=== PATIENT | female | born 1985 | race Two or more races ===

== ENCOUNTER 2018-02-17 22:17 | Observation (INO) | payer OTHER ==
[~2018-02-17] VITALS: Ht 157.5 cm; Wt 95.5 kg
[~2018-02-17 22:17] MED LIST: DOCU240C31 PO; IBUP-1222 PO; OXYC-302 PO
[2018-02-17 22:20] VITALS: BP 153/83
[2018-02-17 22:45] LABS: MICROSCOPIC INDICATED
[2018-02-17 23:18] LABS: BASOPHILS # (AUTO) 0.02 x10^3/uL (0-0.1); BASOPHILS % (AUTO) 0 % (0-1); EOSINOPHILS # (AUTO) 0.08 x10^3/uL (0-0.4); EOSINOPHILS % (AUTO) 1 % (1-7); LYMPHOCYTES # (AUTO) 1.81 x10^3/uL (1-3.4); LYMPHOCYTES % (AUTO) 26 % (22-44); MD NO; MEAN CORPUSCULAR HEMOGLOBIN 27.1 pg (27.0-34.8); MEAN CORPUSCULAR HGB CONC 33.2 g/dL (32.4-35.8); MEAN CORPUSCULAR VOLUME 81.7 fL (80-100); MEAN PLATELET VOLUME 10.1 fL (7.4-10.4); MONOCYTES % (AUTO) 10 % (2-9); NEUTROPHILS # (AUTO) 4.49 x10^3/uL (1.8-6.8); NEUTROPHILS % (AUTO) 63 % (42-75); PLATELET COUNT 172 x10^3/uL (130-400); RED BLOOD COUNT 4.13 x10^6/uL (3.82-5.3); RED CELL DISTRIBUTION WIDTH 14.4 % (9.6-15.2)
[2018-02-17 23:30] LABS: ALANINE AMINOTRANSFERASE 13 U/L (12-78); ALBUMIN 2.2 g/dL (3.4-5.0); ANION GAP 10 mmol/L (5-15); CALCIUM 8.4 mg/dL (8.5-10.1); CHLORIDE 110 mmol/L (98-107); CREATININE 0.52 mg/dL (0.55-1.02)
[2018-02-17 23:31] LABS: BILIRUBIN, DIRECT < 0.1 mg/dL (0.1-0.2)
[2018-02-17 23:33] LABS: ALKALINE PHOSPHATASE 139 U/L (45-117); BILIRUBIN,TOTAL 0.3 mg/dL (0.2-1.0)
== END 2018-02-18 00:55 | disposition home or self-care (01) ==
LOC: LDOP 22:17 → LDIP 02-18 00:15
PROVIDERS: ADMIT Student in an Organized Health Care Education/Training Program; ATTEND Student in an Organized Health Care Education/Training Program
DX: Z34.93 Encounter for supervision of normal pregnancy, unspecified, third trimester (principal); Z3A.37 37 weeks gestation of pregnancy
CPT/HCPCS: 36415; 59025; 80053; 81001; 82248; 82570; 84156; 84550; 85025; 87086; G0378

== ENCOUNTER 2018-02-18 19:04 | Outpatient (CLI) | payer OTHER ==
[~2018-02-18] VITALS: Ht 157.5 cm; Wt 96.5 kg
[2018-02-18 19:37] LABS: MICROSCOPIC INDICATED
[2018-02-18 19:48] LABS: BASOPHILS # (AUTO) 0.02 x10^3/uL (0-0.1); BASOPHILS % (AUTO) 0 % (0-1); EOSINOPHILS # (AUTO) 0.05 x10^3/uL (0-0.4); EOSINOPHILS % (AUTO) 1 % (1-7); LYMPHOCYTES % (AUTO) 27 % (22-44); MD NO; MEAN CORPUSCULAR HEMOGLOBIN 27.4 pg (27.0-34.8); MEAN CORPUSCULAR HGB CONC 33.8 g/dL (32.4-35.8); MEAN PLATELET VOLUME 10.4 fL (7.4-10.4); MONOCYTES # (AUTO) 0.59 x10^3/uL (0.2-0.8); MONOCYTES % (AUTO) 10 % (2-9); NEUTROPHILS # (AUTO) 3.67 x10^3/uL (1.8-6.8); NEUTROPHILS % (AUTO) 62 % (42-75); PLATELET COUNT 171 x10^3/uL (130-400); RED BLOOD COUNT 4.09 x10^6/uL (3.82-5.3); RED CELL DISTRIBUTION WIDTH 14.6 % (9.6-15.2)
[2018-02-18 20:00] LABS: ALANINE AMINOTRANSFERASE 13 U/L (12-78); ALBUMIN 2.1 g/dL (3.4-5.0); ANION GAP 8 mmol/L (5-15); BILIRUBIN, DIRECT < 0.1 mg/dL (0.1-0.2); CALCIUM 8.4 mg/dL (8.5-10.1); CHLORIDE 109 mmol/L (98-107); CREATININE 0.51 mg/dL (0.55-1.02)
[2018-02-18 20:02] LABS: ALKALINE PHOSPHATASE 141 U/L (45-117); BILIRUBIN,TOTAL 0.3 mg/dL (0.2-1.0); TOTAL PROTEIN 5.9 g/dL (6.4-8.2)
== END 2018-02-18 20:19 | disposition home or self-care (01) ==
LOC: LDOP 19:04
PROVIDERS: ATTEND Student in an Organized Health Care Education/Training Program
DX: O26.893 Other specified pregnancy related conditions, third trimester (principal); R51 Headache; H53.8 Other visual disturbances; R10.11 Right upper quadrant pain; Z3A.35 35 weeks gestation of pregnancy
CPT/HCPCS: 36415; 59025; 80053; 81001; 82248; 82570; 84156; 84550; 85025; 87086; 99211; G0463

== ENCOUNTER 2018-02-21 09:04 | Observation (INO) | payer OTHER ==
[~2018-02-21] VITALS: Ht 157.5 cm; Wt 97.7 kg
[2018-02-21 09:16] VITALS: BP 127/92
[2018-02-21 09:43] LABS: MICROSCOPIC INDICATED
[2018-02-21] MEDS ORDERED: DIPHENHYDRAMINE 50 MG/ML, 1ML ONE (09:51)
[2018-02-21] MEDS ORDERED: METOCLOPRAMIDE 5 MG/ML, 2ML ONE (09:51)
[2018-02-21] MEDS ORDERED: LACTATED RINGERS 1,000 ML IV SCH ×2 (10:00→10:05)
[2018-02-21] MEDS ORDERED: METOCLOPRAMIDE 5 MG/ML, 2ML IVPush ONE (10:00)
[2018-02-21] MEDS ORDERED: DIPHENHYDRAMINE 50 MG/ML, 1ML IVPush ONE (10:00)
[2018-02-21 10:21] LABS: BASOPHILS # (AUTO) 0.02 x10^3/uL (0-0.1); BASOPHILS % (AUTO) 0 % (0-1); EOSINOPHILS # (AUTO) 0.07 x10^3/uL (0-0.4); EOSINOPHILS % (AUTO) 1 % (1-7); LYMPHOCYTES # (AUTO) 1.45 x10^3/uL (1-3.4); LYMPHOCYTES % (AUTO) 24 % (22-44); MD NO; MEAN CORPUSCULAR HEMOGLOBIN 27.3 pg (27.0-34.8); MEAN CORPUSCULAR HGB CONC 33.4 g/dL (32.4-35.8); MEAN CORPUSCULAR VOLUME 81.5 fL (80-100); MEAN PLATELET VOLUME 10.2 fL (7.4-10.4); MONOCYTES # (AUTO) 0.51 x10^3/uL (0.2-0.8); MONOCYTES % (AUTO) 9 % (2-9); NEUTROPHILS # (AUTO) 3.97 x10^3/uL (1.8-6.8); NEUTROPHILS % (AUTO) 66 % (42-75); PLATELET COUNT 168 x10^3/uL (130-400); RED BLOOD COUNT 4.47 x10^6/uL (3.82-5.3); RED CELL DISTRIBUTION WIDTH 14.5 % (9.6-15.2)
[2018-02-21 10:33] LABS: ALBUMIN 2.3 g/dL (3.4-5.0); ANION GAP 8 mmol/L (5-15); BILIRUBIN, DIRECT 0.1 mg/dL (0.1-0.2); CALCIUM 7.6 mg/dL (8.5-10.1); CHLORIDE 108 mmol/L (98-107)
[2018-02-21 10:36] LABS: ALANINE AMINOTRANSFERASE 14 U/L (12-78); ALKALINE PHOSPHATASE 156 U/L (45-117); BILIRUBIN,TOTAL 0.7 mg/dL (0.2-1.0); CREATININE 0.57 mg/dL (0.55-1.02); TOTAL PROTEIN 6.2 g/dL (6.4-8.2)
[2018-02-21] MEDS ORDERED: FENTANYL PF 100 MCG/2ML ONE (10:53)
[2018-02-21] MEDS ORDERED: FENTANYL PF 100 MCG/2ML IVPush PRN (11:00)
[2018-02-21] MEDS ORDERED: FENTANYL PF 100 MCG/2ML IVPush ONE (11:30)
[2018-02-21] MEDS ORDERED: PREN1TAB69 PO (14:35)
== END 2018-02-21 14:41 | disposition home or self-care (01) ==
LOC: LDOP 09:04 → LDIP 10:54
PROVIDERS: ADMIT Student in an Organized Health Care Education/Training Program; ATTEND Student in an Organized Health Care Education/Training Program
DX: O26.893 Other specified pregnancy related conditions, third trimester (principal); R51 Headache; Z3A.35 35 weeks gestation of pregnancy
CPT/HCPCS: 36415; 59025; 80053; 81001; 82248; 82570; 84156; 84550; 85025; 87086; 96361; 96374; 96375; G0378; J1200; J2765; J3010; J7120; 96360

== ENCOUNTER 2018-02-25 11:12 | Inpatient (IN) | payer OTHER ==
[~2018-02-25] VITALS: Ht 157.5 cm; Wt 97.5 kg
[~2018-02-25 11:12] MED LIST changes: +PREN1TAB69 PO
[2018-02-25] MEDS ORDERED: OXYTOCIN 30U/ 0.9% NaCL 500ML 500 ML IV ONE (11:17)
[2018-02-25] MEDS ORDERED: MAGNESIUM SULF. PMX 20GM/500ML 500 ML IV ONE ×2 (11:26→21:56)
[2018-02-25] MEDS ORDERED: MAGNESIUM SULFATE PMX 4GM/100M 100 ML ONE (11:26)
[2018-02-25] MEDS ORDERED: MAGNESIUM SULFATE PMX 4GM/100M 100 ML IVPB ONE (11:30)
[2018-02-25] MEDS ORDERED: FENTANYL PF 100 MCG/2ML IVPush PRN (11:30)
[2018-02-25] MEDS ORDERED: FENTANYL PF 100 MCG/2ML IV PRN (11:30)
[2018-02-25] MEDS ORDERED: PLEASE ENTER HEIGHT AND WEIGHT MC SCH (11:30)
[2018-02-25] MEDS ORDERED: ONDANSETRON 2MG/ML, 2ML IVPush PRN (11:30)
[2018-02-25] MEDS ORDERED: LABETALOL 5MG/ML, 20ML ONE (11:37)
[2018-02-25] MEDS ORDERED: LABETALOL 5MG/ML, 20ML IVPush ONE (12:00)
[2018-02-25 12:12] LABS: MEAN CORPUSCULAR HGB CONC 33.5 g/dL (32.4-35.8); MEAN CORPUSCULAR VOLUME 80.7 fL (80-100); MEAN PLATELET VOLUME 11.1 fL (7.4-10.4); PLATELET COUNT 177 x10^3/uL (130-400); RED BLOOD COUNT 4.63 x10^6/uL (3.82-5.3); RED CELL DISTRIBUTION WIDTH 14.9 % (9.6-15.2)
[2018-02-25] MEDS: MAGNESIUM SULF. PMX 20GM/500ML 500 ML IV PRN ×2 (12:16→22:00)
[2018-02-25] MEDS: LACTATED RINGERS 1,000 ML IV PRN ×2 (12:20→21:54)
[2018-02-25 12:23] LABS: CHLORIDE 108 mmol/L (98-107)
[2018-02-25 12:29] LABS: ALANINE AMINOTRANSFERASE 15 U/L (12-78); ALBUMIN 2.3 g/dL (3.4-5.0); ALKALINE PHOSPHATASE 175 U/L (45-117); ANION GAP 11 mmol/L (5-15); BILIRUBIN,TOTAL 0.5 mg/dL (0.2-1.0); CALCIUM 8.7 mg/dL (8.5-10.1); TOTAL PROTEIN 6.3 g/dL (6.4-8.2)
[2018-02-25 12:31] LABS: BILIRUBIN, DIRECT < 0.1 mg/dL (0.1-0.2)
[2018-02-25 12:54] LABS: BASOPHILS # (AUTO) 0.01 x10^3/uL (0-0.1); BASOPHILS % (AUTO) 0 % (0-1); EOSINOPHILS # (AUTO) 0.04 x10^3/uL (0-0.4); EOSINOPHILS % (AUTO) 1 % (1-7); LYMPHOCYTES # (AUTO) 1.56 x10^3/uL (1-3.4); LYMPHOCYTES % (AUTO) 25 % (22-44); MD SCAN; MONOCYTES # (AUTO) 0.56 x10^3/uL (0.2-0.8); MONOCYTES % (AUTO) 9 % (2-9); NEUTROPHILS % (AUTO) 66 % (42-75)
[2018-02-25 13:05] VITALS: BP 147/97
[2018-02-25] MEDS ORDERED: NEWBORN KIT ONE (13:17)
[2018-02-25] MEDS ORDERED: OXYTOCIN 30U/ 0.9% NaCL 500ML 500 ML IV PRN (13:40)
[2018-02-25] MEDS ORDERED: OXYTOCIN 30U/ 0.9% NaCL 500ML 500 ML ONE (13:45)
[2018-02-25] MEDS ORDERED: BETAMETHASONE 6 MG/ML, 5ML IM ONE ×2 (17:30→18:00)
[2018-02-25] MEDS ORDERED: FENTANYL PF 100 MCG/2ML ONE (17:41)
[2018-02-25] MEDS ORDERED: CEPH-368 PO (18:28)
[2018-02-25] MEDS ORDERED: LABETALOL 5MG/ML, 20ML IVPush PRN ×2 (18:30→19:00)
[2018-02-25] MEDS ORDERED: D5%-LACTATED RINGERS 1,000 ML IV SCH (20:43)
[2018-02-25] MEDS ORDERED: LIDOCAINE/PF 1%, 30ML ONE (20:48)
[2018-02-25] MEDS ORDERED: MISOPROSTOL 200 MCG TABLET ONE (20:48)
[2018-02-25] MEDS: CEPHALEXIN 500 MG CAPSULE PO SCH (21:00)
[2018-02-25 21:12] VITALS: BP 165/109
[2018-02-25] MEDS ORDERED: LACTATED RINGERS 1,000 ML IV SCH ×2 (22:26)
[2018-02-25] MEDS ORDERED: FENTANYL/BUPIV./NS/PF 250 ML EPIDCONT SCH ×2 (22:26)
[2018-02-25] MEDS ORDERED: BUPIVACAINE/PF 0.25% ONE (22:28)
[2018-02-25] MEDS ORDERED: FENTANYL/BUPIV./NS/PF 250 ML EPIDCONT ONE (22:29)
[2018-02-25] MEDS ORDERED: NALOXONE 0.4 MG/ML, 1ML IVPush PRN ×2 (22:30)
[2018-02-25] MEDS ORDERED: EPHEDRINE 50 MG/ML, 1ML IVPush PRN (22:30)
[2018-02-25] MEDS ORDERED: LACTATED RINGERS 1,000 ML IVBOLUS PRN ×2 (22:30)
[2018-02-26] MEDS ORDERED: ONDANSETRON 2MG/ML, 2ML ONE (00:12)
[2018-02-26] MEDS ORDERED: EPHEDRINE 50 MG/ML, 1ML ONE (01:02)
[2018-02-26] MEDS ORDERED: ACETAMINOPHEN 325 MG TABLET ONE (04:32)
[2018-02-26] MEDS: ACETAMINOPHEN 325 MG TABLET PO PRN (04:38)
[2018-02-26] MEDS ORDERED: OXYTOCIN 30U/ 0.9% NaCL 500ML 500 ML ONE (07:57)
[2018-02-26] MEDS ORDERED: DOCUSATE 100 MG CAPSULE PO PRN (08:00)
[2018-02-26] MEDS ORDERED: ONDANSETRON 2MG/ML, 2ML IV PRN (08:00)
[2018-02-26] MEDS ORDERED: OXYcodone/APAP 5/325MG TABLET PO PRN ×2 (08:00)
[2018-02-26] MEDS ORDERED: GLYCERIN ADULT SUPP PR PRN (08:00)
[2018-02-26] MEDS ORDERED: MISOPROSTOL 200 MCG TABLET PR PRN (08:00)
[2018-02-26] MEDS ORDERED: IBUPROFEN 600 MG TABLET PO PRN (08:00)
[2018-02-26] MEDS ORDERED: METOCLOPRAMIDE 5 MG/ML, 2ML IV PRN (08:00)
[2018-02-26] MEDS ORDERED: ACETAMINOPHEN 325 MG TABLET PO PRN (08:00)
[2018-02-26] MEDS ORDERED: CARBOPROST TROMETHAMINE 250 MCG/ML, 1ML IM PRN (08:00)
[2018-02-26] MEDS ORDERED: BISACODYL 10 MG SUPP PR PRN (08:00)
[2018-02-26] MEDS: OXYTOCIN 30U/ 0.9% NaCL 500ML 500 ML IV SCH ×2 (08:05→17:53)
[2018-02-26] MEDS ORDERED: MAGNESIUM SULF. PMX 20GM/500ML 500 ML IV ONE ×2 (08:09→17:52)
[2018-02-26] MEDS: MAGNESIUM SULF. PMX 20GM/500ML 500 ML IV PRN ×2 (08:16→17:59)
[2018-02-26] MEDS: PRENATAL VIT/IRON/FA 1 EACH TABLET PO SCH (09:00)
[2018-02-26] MEDS ORDERED: IBUPROFEN 800 MG TABLET ONE (10:02)
[2018-02-26] MEDS: CEPHALEXIN 500 MG CAPSULE PO SCH ×2 (14:00→21:28)
[2018-02-26 17:02] LABS: MEAN CORPUSCULAR HGB CONC 33.1 g/dL (32.4-35.8); MEAN CORPUSCULAR VOLUME 81.4 fL (80-100); MEAN PLATELET VOLUME 11.1 fL (7.4-10.4); PLATELET COUNT 168 x10^3/uL (130-400); RED CELL DISTRIBUTION WIDTH 14.9 % (9.6-15.2)
[2018-02-26 17:46] LABS: BASOPHILS # (AUTO) 0.02 x10^3/uL (0-0.1); BASOPHILS % (AUTO) 0 % (0-1); EOSINOPHILS % (AUTO) 0 % (1-7); LYMPHOCYTES # (AUTO) 1.04 x10^3/uL (1-3.4); LYMPHOCYTES % (AUTO) 8 % (22-44); MD SCAN; MONOCYTES # (AUTO) 0.87 x10^3/uL (0.2-0.8); MONOCYTES % (AUTO) 7 % (2-9); NEUTROPHILS # (AUTO) 11.62 x10^3/uL (1.8-6.8); NEUTROPHILS % (AUTO) 86 % (42-75)
[2018-02-26] MEDS: LACTATED RINGERS 1,000 ML IV PRN (17:59)
[2018-02-26 19:07] VITALS: BP 150/86
[2018-02-26] MEDS ORDERED: IBUPROFEN 600 MG TABLET ONE (19:22)
[2018-02-26] MEDS ORDERED: DOCUSATE 100 MG CAPSULE ONE (19:23)
[2018-02-27] MEDS ORDERED: MAGNESIUM SULF. PMX 20GM/500ML 500 ML IV ONE (03:33)
[2018-02-27] MEDS: MAGNESIUM SULF. PMX 20GM/500ML 500 ML IV PRN (03:36)
[2018-02-27] MEDS: OXYTOCIN 30U/ 0.9% NaCL 500ML 500 ML IV SCH ×3 (03:53→23:53)
[2018-02-27] MEDS: CEPHALEXIN 500 MG CAPSULE PO SCH ×2 (08:26→21:00)
[2018-02-27] MEDS: PRENATAL VIT/IRON/FA 1 EACH TABLET PO SCH (08:27)
[2018-02-27 09:10] VITALS: BP 157/86
[2018-02-27 09:52] VITALS: BP 131/86
[2018-02-27 11:27] VITALS: BP 140/76
[2018-02-27 15:19] VITALS: BP 135/72
[2018-02-27] MEDS ORDERED: MEASLES,MUMPS&RUBELLA VACC/PF 0.5 ML SQ-VACC ONE (18:00)
[2018-02-27] MEDS ORDERED: DIPH,PERTUSS(ACELL),TET VAC/PF NC IM-VACC ONE (18:00)
[2018-02-27 19:30] VITALS: BP 140/88
[2018-02-27] MEDS: ACETAMINOPHEN 325 MG TABLET PO PRN (23:21)
[2018-02-28] VITALS: BP 129/80
[2018-02-28 03:45] VITALS: BP 113/70
[2018-02-28] MEDS ORDERED: MEASLES,MUMPS&RUBELLA VACC/PF 0.5 ML SQ-VACC ONE (05:00)
[2018-02-28 07:30] VITALS: BP 147/97
[2018-02-28] MEDS: CEPHALEXIN 500 MG CAPSULE PO SCH (09:00)
[2018-02-28] MEDS: PRENATAL VIT/IRON/FA 1 EACH TABLET PO SCH (09:00)
[2018-02-28] MEDS: OXYTOCIN 30U/ 0.9% NaCL 500ML 500 ML IV SCH (09:53)
[2018-02-28 12:00] VITALS: BP 134/75
[2018-02-28] MEDS ORDERED: IBUP-1222 PO (13:28)
== END 2018-02-28 13:40 | disposition home or self-care (01) | DRG 775 ==
LOC: LDIP 11:12 → 2NE 02-26 09:57 → 2NW 02-27 10:47
PROVIDERS: ADMIT Student in an Organized Health Care Education/Training Program; ATTEND Student in an Organized Health Care Education/Training Program
PROC: 10E0XZZ Delivery of Products of Conception, External Approach (ICD-10-PCS; principal; 2018-02-26)
PROC: 10907ZC Drainage of Amniotic Fluid, Therapeutic from Products of Conception, Via Natural or Artificial Opening (ICD-10-PCS; 2018-02-26)
PROC: 3E033VJ Introduction of Other Hormone into Peripheral Vein, Percutaneous Approach (ICD-10-PCS; 2018-02-26)
PROC: 3E0R3BZ Introduction of Anesthetic Agent into Spinal Canal, Percutaneous Approach (ICD-10-PCS; 2018-02-26)
PROC: 00HU33Z Insertion of Infusion Device into Spinal Canal, Percutaneous Approach (ICD-10-PCS; 2018-02-26)
DX: O14.14 Severe pre-eclampsia complicating childbirth (principal); O99.344 Other mental disorders complicating childbirth; O60.14X0 Preterm labor third trimester with preterm delivery third trimester, not applicable or unspecified; Z37.0 Single live birth; Z3A.36 36 weeks gestation of pregnancy
CPT/HCPCS: 36415; 76815; 80053; 82248; 83735; 84550; 85025; 86850; 86900; 90715; J0702; J2405; J3010; J2590; J3475; J7120; J7121